=== PATIENT | female | born 1960 | race African-American/Black ===

== ENCOUNTER 2020-07-22 11:33 | Emergency (ER) | payer MEDICAID ==
[~2020-07-22] VITALS: Ht 157.5 cm; Wt 65.9 kg
[2020-07-22] MEDS ORDERED: LIDOCAINE 1% 10 ML VIAL INJ ONE (14:15)
[2020-07-22 15:46] VITALS: BP 160/118
== END 2020-07-22 15:52 | disposition home or self-care (01) ==
LOC: EMS 11:33
DX: S61.217A Laceration without foreign body of left little finger without damage to nail, initial encounter (principal); Z88.0 Allergy status to penicillin; W22.8XXA Striking against or struck by other objects, initial encounter; Y93.89 Activity, other specified; Y92.89 Other specified places as the place of occurrence of the external cause; Y99.8 Other external cause status
CPT/HCPCS: 11740; 12001; 73130; 99284; J3490

== ENCOUNTER 2020-08-02 09:46 | Emergency (ER) | payer MEDICAID ==
[~2020-08-02] VITALS: Ht 157.5 cm; Wt 66.8 kg
[2020-08-02] MEDS ORDERED: BACITRACIN 0.9 GM PACKET OINTMENT TP ONE (11:00)
[2020-08-02 11:10] VITALS: BP 172/89
== END 2020-08-02 11:12 | disposition home or self-care (01) ==
LOC: EMS 09:50
DX: S61.215D Laceration without foreign body of left ring finger without damage to nail, subsequent encounter (principal); I10 Essential (primary) hypertension; Z88.0 Allergy status to penicillin; X58.XXXD Exposure to other specified factors, subsequent encounter
CPT/HCPCS: Z7502; Z7610